=== PATIENT | male | born 1965 | race Caucasian/White ===

== ENCOUNTER 2020-03-11 06:56 | Outpatient (CLI) | payer OTHER, SELFPAY ==
[2020-03-11 07:10] LABS: Basophils Absolute Auto 0.06 K/mm3 (0.00-0.10); Eosinophils Absolute Auto 0.13 K/mm3 (0.02-0.50); Eosinophils Percent Auto 2.1 % (1.0-6.0); Hematocrit 41.2 % (40.0-54.0); Hemoglobin 14.2 g/dL (14.0-18.0); Immature Granulocyte Absolute 0.01 K/mm3 (0.00-0.00); Immature Granulocyte Percent A 0.2 % (0.0-0.0); Lymphocytes Absolute Auto 1.51 K/mm3 (1.10-4.50); Lymphocytes Percent Auto 24.5 % (18.0-42.0); Mean Corpuscular HGB Conc 34.5 g/dL (32.0-36.0); Mean Corpuscular Volume 95.8 fL (78.0-102.0); Mean Platelet Volume 10.2 fl (8.7-11.0); Monocytes Absolute Auto 0.64 K/mm3 (0.10-0.90); Monocytes Percent Auto 10.4 % (2.0-11.0); Neutrophils Absolute Auto 3.8 K/mm3 (1.7-7.2); Neutrophils Percent Auto 61.8 % (50.0-70.0); Platelet Count Result 226 K/mm3 (150-420); Red Cell Distribution Width 12.3 % (11.6-14.4); White Blood Count 6.2 K/mm3 (4.8-10.8)
[2020-03-11 07:25] LABS: Hemoglobin A1C 6.2 % (<5.7)
[2020-03-11 08:29] LABS: Alanine Aminotransferase 35 U/L (16-63); Albumin Level 4.1 g/dL (3.4-5.0); Alkaline Phosphatase 59 U/L (46-116); Anion Gap 11 mmol/L (8-16); Aspartate Amino Transferase 22 U/L (15-37); Bilirubin,Total 0.3 mg/dL (0.00-1.00); Blood Urea Nitrogen 23 mg/dL (7-18); Calcium 8.6 mg/dL (8.5-10.1); Carbon Dioxide 24 mmol/L (21-32); Chloride 106 mmol/L (98-108); Cholesterol 159 mg/dL (0-200); Estimated Glomerular Filt Rate 57; Glucose 113 mg/dL (70-99); HDL Direct 36 mg/dL (40-60); LDL Cholesterol Calculated 109 mg/dL (<130); Osmolality Calculated 296 mOsm/kg (285-295); Potassium 3.8 mmol/L (3.5-5.1); Sodium 141 mmol/L (136-145); Total Protein 7.1 g/dL (6.4-8.2); Triglycerides 69 mg/dL (0-150)
[2020-03-16 16:38] LABS: Testosterone Free 57.8 pg/mL (35.0-155.0); Testosterone Total 602 ng/dL (250-1100)
== END 2020-03-11 06:57 | disposition home or self-care (01) ==
LOC: CHSLAB 06:58
PROVIDERS: PCP Physician Assistant; Visit Provider Physician Assistant
DX: N52.9 Male erectile dysfunction, unspecified (principal); E11.9 Type 2 diabetes mellitus without complications
CPT/HCPCS: 36415; 80053; 80061; 83036; 84402; 84403; 85025

== ENCOUNTER 2020-06-25 17:23 | Emergency (ER) | payer OTHER, SELFPAY ==
[2020-06-25] VITALS (14 sets, daily range): BP systolic 96–140; BP diastolic 59–79; PULSE 72–144; RESP 20; TEMP 36.7; O2SAT 98–100
[2020-06-25] MEDS: METOPROLOL TARTRATE INJ 5 MG/5 ML VIAL ×2 (17:30→17:42)
--- NOTE | 2020-06-25 17:35 | ECG_ITS ---
Measurements Intervals [place] Rate: 97 P: MT: 0 QRS: -8 QRSD: 93 T: 72 QT: 311 QTc: 395 Interpretive Statements ATRIAL FLUTTER LOW QRS VOLTAGE IN PRECORDIAL LEADS CANNOT RULE OUT SEPTAL INFARCT, AGE INDETERMINATE BORDERLINE T WAVE ABNORMALITY- HIGH LATERAL LEADS BASELINE ARTIFACT- I, II, III, AVR, AVL, AVF, V3-V6 ABNORMAL ECG Electronically Signed On 06-26-2020 7:30:50 BIOMETRICS CONSULTANT by Bernardo Rosario D.O.
[2020-06-25] MEDS: ADENOSINE IV SOLN 6 MG/2 ML VIAL IV PUSH (17:53)
[2020-06-25] MEDS: ADENOSINE IV SOLN 6 MG/2 ML VIAL 12 MG IV PUSH (17:54)
[2020-06-25 17:57] LABS: Hemoglobin 16.9 g/dL (14.0-18.0); Mean Corpuscular HGB Conc 35.2 g/dL (32.0-36.0); Mean Corpuscular Hemoglobin 33.3 pg (27.0-31.0); Mean Corpuscular Volume 94.5 fL (78.0-102.0); Mean Platelet Volume 9.8 fl (8.7-11.0); Platelet Count Result 248 K/mm3 (150-420); Red Blood Count 5.08 M/mm3 (4.70-6.10); Red Cell Distribution Width 11.9 % (11.6-14.4); White Blood Count 9.5 K/mm3 (4.8-10.8)
[2020-06-25] MEDS: dilTIAZem HCl INJ 25 MG/5 ML VIAL 10 MG IV PUSH (18:06)
[2020-06-25 18:16] LABS: Alanine Aminotransferase 37 U/L (16-63); Alkaline Phosphatase 82 U/L (46-116); Anion Gap 12 mmol/L (8-16); Aspartate Amino Transferase 23 U/L (15-37); Bilirubin,Total 0.5 mg/dL (0.00-1.00); Carbon Dioxide 25 mmol/L (21-32); Estimated CRCL calculation 96 ml/min; Estimated Glomerular Filt Rate > 60
[2020-06-25] MEDS: dilTIAZem HCl INJ 25 MG/5 ML VIAL 5 MG IV PUSH (18:18)
[2020-06-25] MEDS: METOPROLOL TARTRATE 50 MG TAB 25 MG PO (18:19)
[2020-06-25 18:33] LABS: BNP 44.4 pg/mL (0-100)
[2020-06-25 18:42] LABS: Blood Urea Nitrogen 20 mg/dL (7-18); Glucose 135 mg/dL (70-99); Total Protein 5.5 g/dL (6.4-8.2)
--- NOTE | 2020-06-25 18:45 | ECG_ITS ---
Measurements Intervals [place] Rate: 144 P: MO: 0 QRS: 7 QRSD: 89 T: 88 QT: 254 QTc: 393 Interpretive Statements ATRIAL FLUTTER WITH RAPID VENTRICULAR RESPONSE BORDERLINE ST-T WAVE ABNORMALITY- HIGH LATERAL LEADS BASELINE WANDER- I, AVL, AVF, V4-V6 ABNORMAL ECG Electronically Signed On 06-26-2020 8:07:06 FILE CLERK DATA ENTRY by Bernardo Rosario D.O.
[2020-06-25 18:49] LABS: Sodium 138 mmol/L (136-145)
[2020-06-25 18:50] LABS: Chloride 101 mmol/L (98-108); Osmolality Calculated 290 mOsm/kg (285-295); Potassium 3.5 mmol/L (3.5-5.1)
[2020-06-25 18:51] LABS: Calcium 8.2 mg/dL (8.5-10.1); Troponin I < 0.02 ng/mL (0.00-0.056)
[2020-06-25 18:54] LABS: D Dimer < 0.19 mg/L (0.19-0.50)
--- NOTE | 2020-06-25 19:44 | ED.CHESTPAIN ---
HPI - Chest Pain General Chief Complaint: Chest Pain Stated Complaint: possible heart attack Time Seen by Provider: 06/25/20 17:40 Source: patient and family Mode of arrival: ambulatory Limitations: no limitations History of Present Illness HPI narrative: Patient come in to hospital after having chest pain today this has been moderately severe and ongoing since 330pm. He took a nitroglycerin that helped some, then his pain came back relatively severe, and ongoing. He has been somewhat short of breath as well. 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) Onset: during rest Pain location: left chest Pain radiation: none Quality: tightness and heaviness Relieving factors: other (walking makes it worse) Associated symptoms: nausea Risk Factors Coronary artery disease risk factors: smoking history and hypertension Related Data Home Medications Medication Instructions Recorded Confirmed aspirin [Aspir-81] 81 mg PO DAILY 06/25/20 06/25/20 cholecalciferol (vitamin D3) 2,000 unit PO DAILY 06/25/20 06/25/20 cyanocobalamin (vitamin B-12) 1,000 mcg PO DAILY 06/25/20 06/25/20 ezetimibe 10 mg PO DAILY 06/25/20 06/25/20 gabapentin 900 mg PO TID 06/25/20 06/25/20 losartan-hydrochlorothiazide 1 tablet PO DAILY 06/25/20 06/25/20 metformin 1,000 mg PO BID 06/25/20 06/25/20 topiramate [Topamax] 100 mg PO DAILY 06/25/20 06/25/20 Allergies Allergy/AdvReac Type Severity Reaction Status Date / Time statins Allergy Unknown Uncoded 06/25/20 20:13 Review of Systems Review of Systems: Narrative: He evidently was on metoprolol in the past but has not taken it for some months. He was also on medicine for his cholesterol that he has not been taking. Constitutional: Constitutional: Reports no additional constitutional complaints Eyes: Eyes: Reports no additional eye complaints ENT: Reports system reviewed and no additional complaints, except as documented Cardiovascular: Cardiovascular: Reports chest pain and Reports rapid heart rate Respiratory: Respiratory: Reports no additional respiratory complaints Gastrointestinal: Comments: nausea initially which has resolved Genitourinary: Genitourinary: Reports no additional male genitourinary complaints Musculoskeletal: Musculoskeletal: Reports no additional musculoskeletal complaints Integumentary/Breasts: Skin/Breast: Reports system reviewed and no additional complaints, except as docu Neurologic: Reports system reviewed and no additional complaints, except as documented Psychiatric: Psychiatric: Reports no additional psychiatric complaints Endocrine: Endocrine: Reports no additional endocrine complaints Hematologic/Lymphatic: Hematologic/Lymphatic: Reports no additional hematologic/lymphatic complaints Allergic/Immunologic: Allergic/Immunologic: Reports no additional allergic/immunologic complaints PMFSH Past Medical History Medical History (Updated 06/25/20 @ 21:42 by Guilherme Shaver MD) CAD (coronary artery disease) Hyperlipidemia Hypertension Surgical History Surgical History (Updated 06/25/20 @ 21:06 by Guilherme Shaver MD) Failed CABG (coronary artery bypass graft) Family History Family History (Updated 06/25/20 @ 21:07 by Guilherme Shaver MD) Mother Colon cancer Father Brain tumor Social History Social History (Updated 06/25/20 @ 21:08 by Guilherme Shaver MD) Smoking packs per day: 1 Smoking cigarettes per day: 20.0 Years smoked: 30 Smoking pack-years: 30.00 Smoking status: Current every day smoker Tobacco type: cigarettes Alcohol intake: current Drinks per week: 4 Gender identity (if verbalized by the patient): Male Exam Narrative: Exam Narrative: He arrived in moderate distress Const: Orientation/consciousness: patient oriented x3 HENMT: Head: normal to inspection Face and sinus: normal facial exam Eyes: Conjunctivae: conjunctivae normal
[2020-06-25] MEDS: POTASSIUM CHLORIDE 20 MEQ TABLET 40 MEQ PO (19:51)
[2020-06-25 20:28] LABS: SARS-CoV-2 Ag Negative (Negative)
== END 2020-06-25 22:53 | disposition short-term general hospital (02) ==
PROVIDERS: Emergency Provider Emergency Medicine; PCP Physician Assistant
DX: I48.92 Unspecified atrial flutter (principal); R07.9 Chest pain, unspecified; I25.9 Chronic ischemic heart disease, unspecified
CPT/HCPCS: 36415; 80053; 83735; 83880; 84484; 85027; 85380; 87426; 93005; 96365; 96366; 96375; 96376; 99285; A9270; J0153

== ENCOUNTER 2020-08-02 10:42 | Emergency (ER) | payer OTHER, SELFPAY ==
[2020-08-02] VITALS (12 sets, daily range): BP systolic 104–121; BP diastolic 66–79; PULSE 58–75; RESP 9–19; TEMP 36.8; O2SAT 95–99
--- NOTE | ~2020-08-02 | CT_ITS ---
EXAMINATION: CTA chest DATE: 08/02/2020 13:07 INDICATION: Right-sided chest pain. TECHNIQUE: Computed tomographic angiography (CTA) of the chest was performed with 100 mL Omnipaque-35 0 intravenous contrast. Automated exposure control and iterative reconstruction technique were employ ed. The dose-length product was 997.59 mGy-cm. Maximum intensity projection 3D-reconstructions of the aorta and other arteries were constructed by the technologist on a separate workstation. COMPARISON: None. FINDINGS: There is mild atelectasis bilaterally. No pleural effusion. The heart size is normal. There are coronary artery calcifications. There are changes of coronary artery bypass grafting. There is n o pulmonary embolus. There is mild aortic atherosclerosis. No aneurysm or dissection. There is an 8 m m cyst in the liver. There is mild thoracic spondylosis. IMPRESSION: 1. Mild aortic atherosclerosis. No aneurysm or dissection. Reviewed, dictated and finalized at location A. [facility]
--- NOTE | ~2020-08-02 | XR_ITS ---
XR chest 1V portable DATE: 08/02/2020 11:11 INDICATION: Right sided mid chest pain TECHNIQUE: Portable AP chest on 08/02/2020 at 1116 hours COMPARISON: 09/11/2009 portable AP chest at 1515 hours FINDINGS: Status post sternotomy. Normal heart size. No hilar or mediastinal enlargement is evident. There is mild infiltrate or atelectasis at the lung bases. No pulmonary infiltrate or consolidation, pleural effusion or pulmonary vascular congestion or pneumothorax is noted otherwise. Degenerative spurring and extra scoliosis of the thoracic spine. Status post sternotomy IMPRESSION: Mild infiltrate or atelectasis at the lung bases Reviewed, dictated and finalized at location B. NICAL IMPLEMENTATION LEAD
--- NOTE | 2020-08-02 10:55 | ECG_ITS ---
Measurements Intervals [place] Rate: 76 P: 69 [place]: 160 QRS: 20 QRSD: 102 T: 94 QT: 412 QTc: 465 Interpretive Statements SINUS RHYTHM CANNOT RULE OUT SEPTAL INFARCT, AGE INDETERMINATE BORDERLINE ST-T WAVE ABNORMALITY- HIGH LATERAL LEADS ABNORMAL ECG Electronically Signed On 08-02-2020 11:09:54 RADAR SYSTEMS ENGINEER by Bernardo Rosario D.O.
[2020-08-02 11:28] LABS: Basophils Absolute Auto 0.04 K/mm3 (0.00-0.10); Basophils Percent Auto 0.5 % (0.0-1.0); Eosinophils Absolute Auto 0.11 K/mm3 (0.02-0.50); Eosinophils Percent Auto 1.4 % (1.0-6.0); Hematocrit 42.9 % (40.0-54.0); Hemoglobin 14.4 g/dL (14.0-18.0); Immature Granulocyte Absolute 0.03 K/mm3 (0.00-0.00); Immature Granulocyte Percent A 0.4 % (0.0-0.0); Lymphocytes Percent Auto 20.5 % (18.0-42.0); Mean Corpuscular HGB Conc 33.6 g/dL (32.0-36.0); Mean Corpuscular Hemoglobin 32.2 pg (27.0-31.0); Mean Platelet Volume 9.9 fl (8.7-11.0); Monocytes Absolute Auto 0.58 K/mm3 (0.10-0.90); Monocytes Percent Auto 7.4 % (2.0-11.0); Neutrophils Absolute Auto 5.5 K/mm3 (1.7-7.2); Neutrophils Percent Auto 69.8 % (50.0-70.0); Platelet Count Result 200 K/mm3 (150-420); Red Blood Count 4.47 M/mm3 (4.70-6.10); Red Cell Distribution Width 12.8 % (11.6-14.4); White Blood Count 7.8 K/mm3 (4.8-10.8)
[2020-08-02] MEDS: KETOROLAC 30 MG/ML VIAL (*BKC) IV PUSH (11:30)
[2020-08-02] MEDS: MAG HYDROX/ALUMINUM HYD/SIMETH 30 ML, PHENobarb/HYOSCY/ATROPINE/SCOP 32.4 MG, LIDOCAINE... PO (11:30)
[2020-08-02 11:38] LABS: D Dimer 0.19 mg/L (0.19-0.50)
[2020-08-02 11:43] LABS: Alanine Aminotransferase 30 U/L (16-63); Albumin Level 4.4 g/dL (3.4-5.0); Alkaline Phosphatase 68 U/L (46-116); Anion Gap 9 mmol/L (8-16); Aspartate Amino Transferase 20 U/L (15-37); Bilirubin,Total 0.7 mg/dL (0.00-1.00); Blood Urea Nitrogen 18 mg/dL (7-18); Calcium 9.5 mg/dL (8.5-10.1); Carbon Dioxide 27 mmol/L (21-32); Chloride 100 mmol/L (98-108); Estimated CRCL calculation 77 ml/min; Estimated Glomerular Filt Rate 58; Glucose 111 mg/dL (70-99); Osmolality Calculated 284 mOsm/kg (285-295); Potassium 3.7 mmol/L (3.5-5.1); Sodium 136 mmol/L (136-145); Total Protein 7.8 g/dL (6.4-8.2); Troponin I 5.4 ng/L (0.00-60.4)
[2020-08-02 11:53] LABS: SARS-CoV-2 Ag Negative (Negative)
[2020-08-02 11:57] LABS: BNP 15.8 pg/mL (0-100)
[2020-08-02 15:02] LABS: Troponin I 6.3 ng/L (0.00-60.4)
--- NOTE | 2020-08-02 15:07 | ED.CHESTPAIN ---
HPI - Chest Pain General Chief Complaint: Chest Pain Stated Complaint: Chest Pain Time Seen by Provider: 08/02/20 10:45 Source: patient and family Mode of arrival: ambulatory Limitations: no limitations History of Present Illness HPI narrative: Patient states he has had epigastric pain, and a stabbing chest pain from both sides laterally, moderately severe, when he takes a deep breath. He also complains of his back hurting. He states this started this am at about 9:30 am. This discomfort, moderately severe, has been ongoing since that time. Pertinent past history: coronary artery disease Risk Factors Coronary artery disease risk factors: diabetes and smoking history Related Data Home Medications Medication Instructions Recorded Confirmed aspirin [Aspir-81] 81 mg PO DAILY 06/25/20 08/02/20 cholecalciferol (vitamin D3) 2,000 unit PO DAILY 06/25/20 08/02/20 cyanocobalamin (vitamin B-12) 1,000 mcg PO DAILY 06/25/20 08/02/20 ezetimibe 10 mg PO DAILY 06/25/20 08/02/20 gabapentin 600 mg PO TID 06/25/20 08/02/20 metformin 1,000 mg PO BID 06/25/20 08/02/20 topiramate [Topamax] 100 mg PO DAILY 06/25/20 08/02/20 amiodarone 200 mg PO DAILY 08/02/20 08/02/20 empagliflozin [Jardiance] 10 mg PO DAILY 08/02/20 08/02/20 hydrochlorothiazide 12.5 mg PO DAILY 08/02/20 08/02/20 ranolazine 1,000 mg PO DAILY 08/02/20 08/02/20 warfarin 4 mg PO DAILY 08/02/20 08/02/20 Allergies Allergy/AdvReac Type Severity Reaction Status Date / Time statins Allergy Unknown Uncoded 06/25/20 20:13 Review of Systems Constitutional: Constitutional: Reports no additional constitutional complaints Eyes: Eyes: Reports no additional eye complaints ENT: Reports system reviewed and no additional complaints, except as documented Cardiovascular: Cardiovascular: Reports no additional cardiovascular complaints Respiratory: Respiratory: Reports no additional respiratory complaints Comments: pain increases with deep breathing Gastrointestinal: Gastrointestinal: Reports no additional gastrointestinal complaints Genitourinary: Genitourinary: Reports no additional male genitourinary complaints Musculoskeletal: Musculoskeletal: Reports no additional musculoskeletal complaints Integumentary/Breasts: Skin/Breast: Reports system reviewed and no additional complaints, except as docu Neurologic: Reports system reviewed and no additional complaints, except as documented Psychiatric: Psychiatric: Reports no additional psychiatric complaints Endocrine: Endocrine: Reports no additional endocrine complaints Hematologic/Lymphatic: Hematologic/Lymphatic: Reports no additional hematologic/lymphatic complaints Allergic/Immunologic: Allergic/Immunologic: Reports no additional allergic/immunologic complaints PMFSH Past Medical History Medical History CAD (coronary artery disease) Hyperlipidemia Hypertension Surgical History Surgical History Failed CABG (coronary artery bypass graft) Family History Family History Mother Colon cancer Father Brain tumor Social History Social History Smoking packs per day: 1 Smoking cigarettes per day: 20.0 Years smoked: 30 Smoking pack-years: 30.00 Smoking status: Current every day smoker Tobacco type: cigarettes Alcohol intake: current Drinks per week: 4 Gender identity (if verbalized by the patient): Male Exam Const: General: no acute distress Orientation/consciousness: patient oriented x3 HENMT: Head: normal to inspection Ears: external ears normal and TM's normal bilaterally Face and sinus: normal facial exam Mouth: Yes moist mucous membranes Throat: posterior oropharynx normal Eyes: Conjunctivae: conjunctivae normal Neck: Neck: normal visual inspection Chest: Chest palpation & inspection: nor
== END 2020-08-02 15:34 | disposition home or self-care (01) ==
PROVIDERS: Emergency Provider Emergency Medicine; PCP Physician Assistant
DX: R07.89 Other chest pain (principal); R07.1 Chest pain on breathing; Z20.822 Contact with and (suspected) exposure to COVID-19
CPT/HCPCS: 36415; 71045; 71275; 80053; 83880; 84484; 85025; 85380; 87426; 93005; 96374; 99283; 99284; A9270; C9803; J1885; Q9965; Q9967

== ENCOUNTER 2020-09-18 10:09 | Emergency (ER) | payer OTHER, SELFPAY ==
--- NOTE | ~2020-09-18 | XR_ITS ---
EXAMINATION: XR chest 2V EXAM DATE: 09/18/2020 10:55 INDICATION: Center left ant cp w/ weakness, hx 6way bypass '04. TECHNIQUE: Frontal and lateral projections of the chest obtained and reviewed. Comparison is made to prior examination from 08/02/2020. FINDINGS: Linear left basilar scarring or atelectasis. The lungs are otherwise clear. There are no pleural effusions. The cardiomediastinal silhouette is within normal limits. There is no pneumothor ax suspected. The bones and soft tissues are unremarkable. Sternotomy wires are present without fin dings to suggest sternal dehiscence. IMPRESSION: No acute cardiopulmonary findings. Reviewed, dictated and finalized at location B. OPHANE BAG MACHINE OPERATOR
[2020-09-18 10:10] VITALS: BP 132/79; PULSE 70; RESP 16; TEMP 36.7; O2SAT 97
--- NOTE | 2020-09-18 10:10 | ECG_ITS ---
Measurements Intervals [place] Rate: 68 P: 64 OR: 158 QRS: 19 QRSD: 100 T: 91 QT: 405 QTc: 432 Interpretive Statements SINUS RHYTHM ANTEROSEPTAL INFARCT, AGE INDETERMINATE BORDERLINE ST-T WAVE ABNORMALITY- HIGH LATERAL LEADS ABNORMAL ECG Electronically Signed On 09-18-2020 10:26:46 SSIS SSRS DEVELOPER by Bernardo Rosario D.O.
--- NOTE | 2020-09-18 10:29 | ED.CHESTPAIN ---
HPI - Chest Pain General Chief Complaint: Chest Pain Stated Complaint: chest pains Source: patient and RN notes reviewed Mode of arrival: ambulatory Limitations: no limitations History of Present Illness HPI narrative: patient states that he had chest pain approximately 1 hour seemed to be some pinching in his chest and pressure. He rated at a 5/10. He has felt like it went up to his jaw. When I push on his chest that seemed to reproduce his pain and he stated that he has had the same kind of reproducible pain since his cardiac surgery. He says he feels overall weak. The pain is been constant without relief. He took a sublingual nitro which did not give him any relief. He says EKG always looks normal. They requested I speak with his communication consultant. MD complaint: chest pain Pertinent past history: coronary artery disease and prior [place] Onset (ago): hour(s) (1) Timing of current episode: constant Prior episodes: Yes Onset: during rest Pain location: substernal Pain radiation: jaw/teeth Pain scale (0-10): 5 Quality: heaviness (Pressure) Relieving factors: nothing Exacerbating factors: nothing Associated symptoms: dyspnea Treatment prior to arrival: nitroglycerin (No improvement) Risk Factors Coronary artery disease risk factors: diabetes, hyperlipidemia and hypertension Pulmonary embolism risk factors: morbid obesity Related Data Home Medications Medication Instructions Recorded Confirmed aspirin [Aspir-81] 81 mg PO DAILY 06/25/20 09/18/20 cholecalciferol (vitamin D3) 2,000 unit PO DAILY 06/25/20 09/18/20 cyanocobalamin (vitamin B-12) 1,000 mcg PO DAILY 06/25/20 09/18/20 ezetimibe 10 mg PO DAILY 06/25/20 09/18/20 gabapentin 600 mg PO BID 06/25/20 09/18/20 metformin 1,000 mg PO BID 06/25/20 09/18/20 amiodarone 200 mg PO DAILY 08/02/20 09/18/20 empagliflozin [Jardiance] 10 mg PO DAILY 08/02/20 09/18/20 hydrochlorothiazide 12.5 mg PO DAILY 08/02/20 09/18/20 ranolazine 1,000 mg PO DAILY 08/02/20 09/18/20 warfarin 4 mg PO DAILY 08/02/20 09/18/20 metoprolol succinate 50 mg PO DAILY 09/18/20 09/18/20 Allergies Allergy/AdvReac Type Severity Reaction Status Date / Time Mexzrmc-Rye-Xyh Reductase Allergy Unknown Verified 09/18/20 10:39 Inhibitor Review of Systems Review of Systems: All systems reviewed & are unremarkable except as noted in HPI and below Constitutional: Constitutional: Denies chills and Denies fever(s) Eyes: Eyes: Reports no additional eye complaints ENT: Reports system reviewed and no additional complaints, except as documented Respiratory: Respiratory: Denies chest congestion, Denies cough and Denies wheezing Gastrointestinal: Gastrointestinal: Denies nausea and Denies vomiting Neurologic: Reports weakness Endocrine: Endocrine: Denies excessive sweating PMFSH Past Medical History Medical History CAD (coronary artery disease) Hyperlipidemia Hypertension Surgical History Surgical History Failed CABG (coronary artery bypass graft) Family History Family History Mother Colon cancer Father Brain tumor Social History Social History Smoking packs per day: 1 Smoking cigarettes per day: 20.0 Years smoked: 30 Smoking pack-years: 30.00 Smoking status: Current every day smoker Tobacco type: cigarettes Alcohol intake: current Drinks per week: 4 Gender identity (if verbalized by the patient): Male Exam Const: General: healthy appearing and no acute distress Nutritional Appearance: well nourished and obese morbidly obese Orientation/consciousness: patient oriented x3 HENMT: Head: normal to inspection Ears: external ears normal Eyes: Conjunctivae: conjunctivae normal Pupils: Equal, round and reactive pupils present EOM: EOMs intact bilaterally Neck: Neck:
[2020-09-18 10:35] LABS: Basophils Absolute Auto 0.05 K/mm3 (0.00-0.10); Basophils Percent Auto 0.6 % (0.0-1.0); Eosinophils Absolute Auto 0.14 K/mm3 (0.02-0.50); Eosinophils Percent Auto 1.7 % (1.0-6.0); Hematocrit 43.4 % (40.0-54.0); Hemoglobin 14.9 g/dL (14.0-18.0); Immature Granulocyte Absolute 0.03 K/mm3 (0.00-0.00); Immature Granulocyte Percent A 0.4 % (0.0-0.0); Lymphocytes Absolute Auto 1.68 K/mm3 (1.10-4.50); Lymphocytes Percent Auto 20.5 % (18.0-42.0); Mean Corpuscular HGB Conc 34.3 g/dL (32.0-36.0); Mean Corpuscular Hemoglobin 32.5 pg (27.0-31.0); Mean Corpuscular Volume 94.6 fL (78.0-102.0); Mean Platelet Volume 10.5 fl (8.7-11.0); Monocytes Absolute Auto 0.58 K/mm3 (0.10-0.90); Monocytes Percent Auto 7.1 % (2.0-11.0); Neutrophils Absolute Auto 5.7 K/mm3 (1.7-7.2); Neutrophils Percent Auto 69.7 % (50.0-70.0); Platelet Count Result 191 K/mm3 (150-420); Red Blood Count 4.59 M/mm3 (4.70-6.10); Red Cell Distribution Width 12.5 % (11.6-14.4); White Blood Count 8.2 K/mm3 (4.8-10.8)
[2020-09-18 10:51] LABS: INR 2.6; Partial Thromboplastin Time 39.3 SEC (23.90-30.70); Prothrombin Time 26.5 Seconds (9.50-12.10)
[2020-09-18 11:01] LABS: Magnesium 1.9 mg/dL (1.8-2.4)
[2020-09-18 11:01] LABS: Alanine Aminotransferase 38 U/L (16-63); Albumin Level 4.2 g/dL (3.4-5.0); Alkaline Phosphatase 66 U/L (46-116); Anion Gap 12 mmol/L (8-16); Aspartate Amino Transferase 15 U/L (15-37); Bilirubin,Total 0.6 mg/dL (0.00-1.00); Blood Urea Nitrogen 15 mg/dL (7-18); Calcium 9.6 mg/dL (8.5-10.1); Carbon Dioxide 27 mmol/L (21-32); Chloride 100 mmol/L (98-108); Estimated Glomerular Filt Rate > 60; Glucose 128 mg/dL (70-99); Osmolality Calculated 290 mOsm/kg (285-295); Potassium 3.6 mmol/L (3.5-5.1); Sodium 139 mmol/L (136-145); Total Protein 8.5 g/dL (6.4-8.2); Troponin I 5.8 ng/L (0.00-60.4)
[2020-09-18 11:11] VITALS: BP 120/72; PULSE 67; O2SAT 97
--- NOTE | 2020-09-18 11:24 | PC.NURSE ---
DR MEDINA CALLED FOR [facility] - [phone]
--- NOTE | 2020-09-18 11:55 | PC.NURSE ---
PT REPORTS FEELING BACK TO NORMAL AT THIS TIME - PAIN 0/10
[2020-09-18 12:16] VITALS: PULSE 60; O2SAT 97
[2020-09-18 12:17] VITALS: BP 116/71; PULSE 60; RESP 18; O2SAT 97
--- NOTE | 2020-09-18 13:30 | PC.NURSE ---
Multiple attempts to contact pt referral manager including a voicemail left on referral manager cellphone. No response.
[2020-09-18 13:56] VITALS: BP 111/77; PULSE 60; RESP 18; TEMP 36.8; O2SAT 99
== END 2020-09-18 13:59 | disposition home or self-care (01) ==
PROVIDERS: Emergency Provider Emergency Medicine; PCP Physician Assistant
DX: R07.9 Chest pain, unspecified (principal)
CPT/HCPCS: 36415; 71046; 80053; 83735; 84443; 84484; 85025; 85610; 85730; 93005; 99283; 99284

== ENCOUNTER 2020-10-24 16:53 | Outpatient (RCR) | payer OTHER, SELFPAY ==
[2020-08-09 15:04] LABS: INR 1.3; Prothrombin Time 13.4 Seconds (9.64-11.0)
[2020-08-23 18:22] LABS: INR 1.8; Prothrombin Time 18.6 Seconds (9.50-12.10)
[2020-08-30 17:47] LABS: INR 1.6; Prothrombin Time 16.3 Seconds (9.50-12.10)
[2020-09-06 17:51] LABS: INR 1.2; Prothrombin Time 12.6 Seconds (9.50-12.10)
[2020-09-13 17:47] LABS: INR 2.4; Prothrombin Time 24.3 Seconds (9.50-12.10)
[2020-09-22 13:46] LABS: INR 1.8; Prothrombin Time 18.2 Seconds (9.50-12.10)
[2020-10-05 17:58] LABS: INR 3.1; Prothrombin Time 31.6 Seconds (9.50-12.10)
[2020-10-24 17:28] LABS: INR 2.2; Prothrombin Time 22.4 Seconds (9.50-12.10)
== END 2020-11-07 23:59 | disposition home or self-care (01) ==
LOC: CHSLAB 16:53
PROVIDERS: PCP Physician Assistant
DX: I48.19 Other persistent atrial fibrillation (principal); Z79.01 Long term (current) use of anticoagulants
CPT/HCPCS: 36415; 85610

== ENCOUNTER 2020-10-24 16:55 | Outpatient (CLI) | payer OTHER, SELFPAY ==
[2020-10-24 18:22] LABS: Alanine Aminotransferase 38 U/L (16-63); Albumin Level 4.2 g/dL (3.4-5.0); Alkaline Phosphatase 67 U/L (46-116); Aspartate Amino Transferase 23 U/L (15-37); Bilirubin Direct 0.1 mg/dL (0-0.2); Bilirubin,Total 0.6 mg/dL (0.00-1.00); Cholesterol 197 mg/dL (0-200); HDL Direct 29 mg/dL (40-60); LDL Cholesterol Calculated 129 mg/dL (<130); Total Protein 7.1 g/dL (6.4-8.2); Triglycerides 194 mg/dL (0-150)
== END 2020-10-24 16:56 | disposition home or self-care (01) ==
LOC: CHSLAB 17:02
PROVIDERS: PCP Physician Assistant
DX: E78.2 Mixed hyperlipidemia (principal)
CPT/HCPCS: 36415; 80061; 80076; 84443

== ENCOUNTER 2020-11-06 16:56 | Outpatient (RCR) | payer OTHER, SELFPAY ==
--- NOTE | 2020-11-07 06:47 | PTOPEVAL ---
Thank you for referring Josue Malcolm to [facility].? The patient is scheduled to be seen for therapy? ____x/week for ___ weeks. Please review, sign, date and return this plan of care MARIELA. I agree with and certify that the following plan of care is medically necessary. Referring Physician Date Admitting Provider: Attending Provider: Jared Candelraia, PA Referring Provider: *PT Outpatient Evaluation Start: 11/06/20 17:04 Freq: Status: Active Protocol: Document 11/06/20 17:05 [facility] (Rec: 11/06/20 17:53 [facility] [id number]) Therapy Assessment Status Assessment Status Assessment Status Evaluation Outpatient Past Medical History Cardiovascular History Hx Angina Yes Hx Atrial Fibrillation Yes Hx Cardiac Arrhythmia Yes Hx Cardiac Catheterization Yes Hx Chest Pain Yes Hx Coronary Artery Bypass Graft Yes Hx Coronary Artery Disease Yes Hx Coronary Stent Yes Hx Hypercholesterolemia Yes Hx Hypertension Yes Endocrine History Hx Diabetes Yes Evaluation Information Problem Diagnosis strain of intercostal muscle Onset 09/25/20 Subjective Information patient reports he had an Query Text:As Reported By Patient/ allergic reaction to a Family medication that caused sickness and some mm related issues. he reports he has no issues with movement, but tends to have pain at rest. patient reports pain along the posterior to postero lateral to lateral bilateral flanks. patient denies having a cough with his allergic reation. he reports he does smoke. he reports he did not experience a lifting of twisting injury. 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
--- NOTE | 2020-12-20 10:29 | PTOPEVAL ---
Thank you for referring Josue Malcolm to [facility].? The patient is scheduled to be seen for therapy? ____x/week for ___ weeks. Please review, sign, date and return this plan of care MARIELA. I agree with and certify that the following plan of care is medically necessary. Referring Physician Date Admitting Provider: Attending Provider: Jared Candelaria, PA Referring Provider: *PT Outpatient Evaluation Start: 11/06/20 17:04 Freq: Status: Active Protocol: Document 12/19/20 17:00 [facility] (Rec: 12/19/20 17:59 [facility] [id number]) Therapy Assessment Status Assessment Status Assessment Status Discharge Outpatient Past Medical History Cardiovascular History Hx Angina Yes Hx Atrial Fibrillation Yes Hx Cardiac Arrhythmia Yes Hx Cardiac Catheterization Yes Hx Chest Pain Yes Hx Coronary Artery Bypass Graft Yes Hx Coronary Artery Disease Yes Hx Coronary Stent Yes Hx Hypercholesterolemia Yes Hx Hypertension Yes Endocrine History Hx Diabetes Yes Evaluation Information Problem Diagnosis strain of intercostal muscle Onset 09/25/20 Additional Evaluation Detail Oswestry 12% Subjective Information Patient reports that he is Query Text:As Reported By Patient/ feeling pretty good today, Family just a bit sore in the right sided lat area. He reports that he is able to go to standing without severe pain or need of a cane. Pain Assessment Self Report Self Report Pain Level 0 Pain Score Pain Score 0: Self Report Cervical and Lumbar ROM Lumbar ROM Lumbar Flexion Active Mid Coh,Ankle Query Text:Hands to: Lumbar Extension (0-40) 40 Query Text:Active in Degrees Lumbar Lateral Flexion Right (0-40) 40 Query Text:Active in Degrees Lumbar Lateral Flexion Left (0-40) 40 Query Text:Active in Degrees Lumbar ROM WNL Lumbar Comments no pain with AROM Posture Posture Standing Position Additional Posture Comments forward head rounded shoulders decreased lumbar lordosis Palpation Assessment Palpation Palpation mild TTP to T10-12 R paraspinals No TTP w/ PAs to T8-L2 General Exercise General Exercises Exercise Description - NuStep x10 min level 5 Query Text:Record Sets, Reps, - open book x10 bilat Resistance, and Position - standing bird dogs x 20 B
== END 2020-12-19 11:04 | disposition home or self-care (01) ==
LOC: CHSPT 16:56
PROVIDERS: PCP Physician Assistant; Visit Provider Physician Assistant
DX: S29.012S Strain of muscle and tendon of back wall of thorax, sequela (principal)
CPT/HCPCS: 97014; 97110; 97140; 97161; G0283

== ENCOUNTER 2020-12-15 17:09 | Outpatient (CLI) | payer OTHER, SELFPAY ==
--- NOTE | ~2020-12-15 | XR_ITS ---
EXAMINATION: XR hip RT min 2V DATE: 12/15/2020 17:49 INDICATION: Hip pain TECHNIQUE: Two views of right hip were obtained. COMPARISON: None. FINDINGS: Bone alignment is normal. There is no fracture. The soft tissues are unremarkable. Phleboli ths are noted. IMPRESSION: 1. No acute osseous abnormality. Reviewed, dictated and finalized at location A.
--- NOTE | ~2020-12-15 | XR_ITS ---
EXAMINATION: XR lumbar spine 2-3V DATE: 12/15/2020 17:49 INDICATION: Chronic low back pain TECHNIQUE: Anteroposterior and lateral views of the lumbar spine, and cone-down lateral view of the l umbosacral junction were obtained. COMPARISON: None. FINDINGS: There is no fracture, dislocation, or subluxation. There is mild loss of intervertebral dis c space height at L4-5 and L5-S1. The vertebral body heights are maintained. Wide atherosclerosis is noted. The bowel gas pattern is normal. There is mild facet osteoarthritis of the lower lumbar spine. IMPRESSION: 1. Mild lumbar spondylosis without acute findings. Reviewed, dictated and finalized at location A.
--- NOTE | ~2020-12-15 | XR_ITS ---
EXAMINATION: XR hip LT min 2V INDICATION: Left hip pain TECHNIQUE: Two views of the left hip are obtained. COMPARISON: None available FINDINGS: Bone alignment is normal. There is no fracture. There are phleboliths of the pelvis. IMPRESSION: 1. No acute osseous abnormality. Reviewed, dictated and finalized at location A.
[2020-12-15 18:18] LABS: Rheumatoid Factor Screen Negative (Negative)
[2020-12-15 18:30] LABS: Erythrocyte Sedimentation Rate 10 mm/hr (0-20)
== END 2020-12-15 17:10 | disposition home or self-care (01) ==
LOC: CHSIMG 17:13
PROVIDERS: PCP Physician Assistant; Visit Provider Physician Assistant
DX: M15.9 Polyosteoarthritis, unspecified (principal); M25.552 Pain in left hip; M54.16 Radiculopathy, lumbar region
CPT/HCPCS: 36415; 72100; 73502; 85652; 86430

== ENCOUNTER 2021-03-01 17:15 | Outpatient (CLI) | payer OTHER, SELFPAY ==
--- NOTE | ~2021-03-01 | XR_ITS ---
EXAMINATION: XR foot LT min 3V DATE: 03/01/2021 17:43 INDICATION: Left foot pain. TECHNIQUE: 4 views of left foot were obtained. COMPARISON: None. FINDINGS: Bone alignment is normal. No fracture. Joint spaces are well maintained. There are enthesop hytes at the posterior and plantar aspects of calcaneal tuberosity. IMPRESSION: 1. No fracture. Reviewed, dictated and finalized at location A. IMPRESSION: 1. No fracture.
--- NOTE | ~2021-03-01 | XR_ITS ---
EXAMINATION: XR foot RT min 3V DATE: 03/01/2021 17:43 INDICATION: Right foot pain. TECHNIQUE: 4 views of right foot were obtained. COMPARISON: None. FINDINGS: Bone alignment is normal. No fracture. Joint spaces are well maintained. There are enthesop hytes at the posterior and plantar aspects of calcaneal tuberosity. IMPRESSION: 1. No fracture. Reviewed, dictated and finalized at location A. IMPRESSION: 1. No fracture.
== END 2021-03-01 17:16 | disposition home or self-care (01) ==
LOC: CHSIMG 17:18
PROVIDERS: PCP Physician Assistant; Visit Provider Physician Assistant
DX: M79.672 Pain in left foot (principal); M79.671 Pain in right foot
CPT/HCPCS: 73630

== ENCOUNTER 2021-04-11 15:23 | Outpatient (CLI) | payer OTHER, SELFPAY ==
[2021-04-11 17:57] LABS: SARS-CoV-2 RNA PCR Positive (Negative)
[2021-04-14 06:39] LABS: SARS-CoV-2 IgG <1.00 Index (<1.00)
== END 2021-04-11 15:24 | disposition home or self-care (01) ==
LOC: CHSLAB 15:29
PROVIDERS: PCP Physician Assistant; Visit Provider Physician Assistant
DX: U07.1 COVID-19 (principal)
CPT/HCPCS: 36415; 86769; C9803; U0003; U0005

== ENCOUNTER 2021-07-09 16:48 | Outpatient (RCR) | payer OTHER, SELFPAY ==
[2021-06-04 17:59] LABS: INR 2.2; Prothrombin Time 22.9 Seconds (9.50-12.10)
[2021-06-11 17:51] LABS: INR 2.2; Prothrombin Time 22.6 Seconds (9.50-12.10)
[2021-07-10 06:39] LABS: INR 1.4
== END 2021-09-02 23:59 | disposition home or self-care (01) ==
LOC: CHSLAB 16:48
PROVIDERS: PCP Physician Assistant
DX: I25.10 Atherosclerotic heart disease of native coronary artery without angina pectoris (principal); Z79.01 Long term (current) use of anticoagulants
CPT/HCPCS: 36415; 85610

== ENCOUNTER 2022-03-30 09:06 | Outpatient (CLI) | payer OTHER, SELFPAY ==
[2022-03-30 09:23] LABS: Basophils Absolute Auto 0.04 K/mm3 (0.00-0.10); Basophils Percent Auto 0.6 % (0.0-1.0); Eosinophils Absolute Auto 0.16 K/mm3 (0.02-0.50); Eosinophils Percent Auto 2.4 % (1.0-6.0); Hematocrit 44.3 % (40.0-54.0); Hemoglobin 15.4 g/dL (14.0-18.0); Immature Granulocyte Absolute 0.02 K/mm3 (0.00-0.00); Immature Granulocyte Percent A 0.3 % (0.0-0.0); Lymphocytes Absolute Auto 1.62 K/mm3 (1.10-4.50); Lymphocytes Percent Auto 24.1 % (18.0-42.0); Mean Corpuscular HGB Conc 34.8 g/dL (32.0-36.0); Mean Corpuscular Hemoglobin 32.8 pg (27.0-31.0); Mean Corpuscular Volume 94.3 fL (78.0-102.0); Mean Platelet Volume 10.5 fl (8.7-11.0); Monocytes Absolute Auto 0.67 K/mm3 (0.10-0.90); Neutrophils Absolute Auto 4.2 K/mm3 (1.7-7.2); Neutrophils Percent Auto 62.6 % (50.0-70.0); Platelet Count Result 185 K/mm3 (150-420); Red Cell Distribution Width 12.1 % (11.6-14.4); White Blood Count 6.7 K/mm3 (4.8-10.8)
[2022-03-30 09:33] LABS: Hemoglobin A1C 9.5 % (<5.7)
[2022-03-30 09:45] LABS: INR 1.1
[2022-03-30 09:50] LABS: Alanine Aminotransferase 137 U/L (16-63); Albumin Level 3.8 g/dL (3.4-5.0); Alkaline Phosphatase 73 U/L (46-116); Anion Gap 8 mmol/L (8-16); Aspartate Amino Transferase 50 U/L (15-37); Bilirubin,Total 0.6 mg/dL (0.00-1.00); Blood Urea Nitrogen 15 mg/dL (7-18); Calcium 8.9 mg/dL (8.5-10.1); Carbon Dioxide 27 mmol/L (21-32); Chloride 102 mmol/L (98-108); Cholesterol 200 mg/dL (0-200); Estimated Glomerular Filt Rate > 60; Glucose 217 mg/dL (70-99); HDL Direct 33 mg/dL (40-60); LDL Cholesterol Calculated 132 mg/dL (<130); Osmolality Calculated 291 mOsm/kg (285-295); Potassium 3.7 mmol/L (3.5-5.1); Sodium 137 mmol/L (136-145); Thyroid Stimulating Hormone 0.78 uIU/mL (0.36-3.74); Triglycerides 177 mg/dL (0-150)
[2022-04-03 12:33] LABS: Vitamin D 25 Hydroxy 31 ng/mL (30-100)
== END 2022-03-30 09:07 | disposition home or self-care (01) ==
PROVIDERS: PCP Physician Assistant
DX: E55.9 Vitamin D deficiency, unspecified (principal); E78.2 Mixed hyperlipidemia; R53.83 Other fatigue
CPT/HCPCS: 36415; 80053; 80061; 82306; 83036; 84443; 85025; 85610

== ENCOUNTER 2022-04-22 17:30 | Outpatient (RCR) | payer OTHER, SELFPAY ==
[2022-04-22 18:00] LABS: INR 1.4; Prothrombin Time 14.6 Seconds (9.50-12.10)
== END 2022-07-21 23:59 | disposition home or self-care (01) ==
LOC: CHSLAB 17:30
PROVIDERS: PCP Physician Assistant
DX: I48.91 Unspecified atrial fibrillation (principal)
CPT/HCPCS: 36415; 85610

== ENCOUNTER 2022-05-14 15:13 | Outpatient (CLI) | payer OTHER, SELFPAY ==
[2022-05-14 15:29] LABS: Basophils Absolute Auto 0.07 K/mm3 (0.00-0.10); Basophils Percent Auto 0.9 % (0.0-1.0); Eosinophils Absolute Auto 0.16 K/mm3 (0.02-0.50); Eosinophils Percent Auto 2.1 % (1.0-6.0); Hematocrit 42.6 % (40.0-54.0); Hemoglobin 14.8 g/dL (14.0-18.0); Immature Granulocyte Absolute 0.02 K/mm3 (0.00-0.00); Immature Granulocyte Percent A 0.3 % (0.0-0.0); Lymphocytes Absolute Auto 1.76 K/mm3 (1.10-4.50); Lymphocytes Percent Auto 22.6 % (18.0-42.0); Mean Corpuscular HGB Conc 34.7 g/dL (32.0-36.0); Mean Corpuscular Hemoglobin 32.7 pg (27.0-31.0); Mean Platelet Volume 10.5 fl (8.7-11.0); Monocytes Absolute Auto 0.72 K/mm3 (0.10-0.90); Monocytes Percent Auto 9.2 % (2.0-11.0); Neutrophils Absolute Auto 5.1 K/mm3 (1.7-7.2); Neutrophils Percent Auto 64.9 % (50.0-70.0); Platelet Count Result 201 K/mm3 (150-420); Red Blood Count 4.53 M/mm3 (4.70-6.10); Red Cell Distribution Width 12.5 % (11.6-14.4); White Blood Count 7.8 K/mm3 (4.8-10.8)
[2022-05-14 15:43] LABS: INR 0.9; Prothrombin Time 10.4 Seconds (9.50-12.10)
[2022-05-14 15:49] LABS: Anion Gap 11 mmol/L (8-16); Blood Urea Nitrogen 13 mg/dL (7-18); Carbon Dioxide 28 mmol/L (21-32); Chloride 101 mmol/L (98-108); Estimated Glomerular Filt Rate > 60; Glucose 231 mg/dL (70-99); Osmolality Calculated 297 mOsm/kg (285-295); Potassium 3.8 mmol/L (3.5-5.1); Sodium 140 mmol/L (136-145)
== END 2022-05-14 15:14 | disposition home or self-care (01) ==
LOC: CHSLAB 15:16
PROVIDERS: PCP Physician Assistant
DX: I25.10 Atherosclerotic heart disease of native coronary artery without angina pectoris (principal); I82.402 Acute embolism and thrombosis of unspecified deep veins of left lower extremity; R94.39 Abnormal result of other cardiovascular function study
CPT/HCPCS: 36415; 80048; 85025; 85610